=== PATIENT | male | born 1955 | race Caucasian/White ===

== ENCOUNTER → 2017-06-11 | Outpatient (CLI) | payer OTHER ==
[2017-06-11 11:35] LABS: APPEARANCE, URINE CLEAR (CLEAR); BACTERIA, URINE AUTO NEGATIVE (NEGATIVE); BILIRUBIN, URINE AUTO NEGATIVE (NEGATIVE); BLOOD, URINE BLOOD NEGATIVE (NEGATIVE); COLOR, URINE YELLOW (YELLOW); GLUCOSE, URINE (UA) AUTO NEGATIVE (NEGATIVE); KETONE, URINE AUTO NEGATIVE (NEGATIVE); LEUKOCYTE ESTERASE, URINE AUTO NEGATIVE (NEGATIVE); MUCUS, URINE SMALL (NEGATIVE); NITRITE, URINE AUTO NEGATIVE (NEGATIVE); PROTEIN, URINE AUTO NEGATIVE (NEGATIVE); RBC, URINE AUTO 0 /HPF (0-3); SPECIFIC GRAVITY URINE AUTO 1.019 (1.002-1.035); SQUAMOUS EPITHELIAL CELL UR AU 0 /HPF (0-6); UROBILINOGEN, URINE AUTO 0.2 mg/dL (0.0-2.0); WBC, URINE AUTO 0 /HPF (0-3)
[2017-06-11 11:36] LABS: HEMATOCRIT 41.6 % (42.0-52.0); HEMOGLOBIN 14.5 g/dl (13.5-17.5); MEAN CORPUSCULAR HEMOGLOBIN 31.7 pg (27.0-33.0); MEAN CORPUSCULAR HGB CONC 34.9 g/dl (32.0-36.5); PLATELET COUNT, AUTOMATED 264 10^3/uL (150-450); RED BLOOD COUNT 4.57 10^6/uL (4.30-6.10); RED CELL DISTRIBUTION WIDTH 11.8 % (11.5-14.5); WHITE BLOOD COUNT 7.1 10^3/uL (4.0-10.0)
[2017-06-11 11:43] LABS: INR 1.06; PROTHROMBIN TIME 13.9 SECONDS (12.4-14.5)
[2017-06-11 12:07] LABS: ALBUMIN 4.3 GM/DL (3.2-5.2); ALBUMIN/GLOBULIN RATIO 1.23 (1.00-1.93); ALKALINE PHOSPHATASE 68 U/L (45-117); ALT/SGPT 50 U/L (12-78); ANION GAP 6 MEQ/L (8-16); AST/SGOT 31 U/L (7-37); BILIRUBIN,TOTAL 0.5 MG/DL (0.2-1.0); BLOOD UREA NITROGEN 14 MG/DL (7-18); CALCIUM LEVEL 8.7 MG/DL (8.5-10.1); CARBON DIOXIDE LEVEL 27 MEQ/L (21-32); CHLORIDE LEVEL 105 MEQ/L (98-107); GLOMERULAR FILTRATION RATE > 60.0 (>56); GLUCOSE, FASTING 133 MG/DL (70-100); POTASSIUM SERUM 3.5 MEQ/L (3.5-5.1); SODIUM LEVEL 138 MEQ/L (136-145); TOTAL PROTEIN 7.8 GM/DL (6.4-8.2)
[2017-06-11 12:15] LABS: ERYTHROCYTE SEDIMENTATION RATE 3 mm/hr (0-20)
== END ==
LOC: M ADMPAT 10:21
DX: Z01.818 Encounter for other preprocedural examination (principal); M17.11 Unilateral primary osteoarthritis, right knee
CPT/HCPCS: 71046

== ENCOUNTER 2017-07-03 05:49 | Inpatient (IN) | payer OTHER ==
[2017-07-03] MEDS: LR 1,000 ML IV ×5 (06:00→21:30)
[2017-07-03] MEDS: ACETAMINOPHEN 500 MG TAB PO (06:25)
[2017-07-03] MEDS ORDERED: fentaNYL 100 MCG/2 ML INJECTION (J3010) As Ordered ×2 (06:47→07:39)
[2017-07-03] MEDS ORDERED: MIDAZOLAM INJ 2 MG/2 ML VIAL (J2250) As Ordered ×2 (06:47→07:39)
[2017-07-03] MEDS: MIDAZOLAM INJ 2 MG/2 ML VIAL (J2250) IV ×2 (07:18→07:19)
[2017-07-03] MEDS: fentaNYL 100 MCG/2 ML INJECTION (J3010) IV (07:18)
[2017-07-03] MEDS ORDERED: LIDOCAINE 2% INJ 100 MG/5 ML SDV (FOR ANES.) As Ordered (07:39)
[2017-07-03] MEDS ORDERED: PROPOFOL 200 MG/20 ML VIAL As Ordered (07:39)
[2017-07-03] MEDS ORDERED: BUPIVACAINE/DEXTROSE 0.75% 2 ML AMP As Ordered (07:45)
[2017-07-03] MEDS ORDERED: ONDANSETRON 4MG/2ML VIAL (J2405) As Ordered (07:50)
[2017-07-03] MEDS ORDERED: METOCLOPRAMIDE INJ 10MG/2ML VIAL (J2765) As Ordered (07:50)
[2017-07-03] MEDS ORDERED: ePHEDrine SULFATE 25 MG/5 ML(5MG/ML) SYRINGE As Ordered (07:51)
[2017-07-03] MEDS ORDERED: PHENYLephrine HCL 500 MCG/5 ML (100MCG/ML) SYRINGE (J2370) As Ordered (08:00)
[2017-07-03] MEDS ORDERED: SEVOFLURANE INHAL SOLN 250 ML BTL As Ordered (08:06)
[2017-07-03] MEDS: ceFAZolin 1GM INJ (J0690 PER 500MG) As Ordered (08:14)
[2017-07-03] MEDS: TRANEXAMIC ACID 100 MG/ML 10ML VIAL As Ordered ×2 (08:15)
[2017-07-03] MEDS: EPINEPHrine INJ 1 MG/ML 1ML AMP As Ordered (08:17)
[2017-07-03] MEDS: BUPIVACAINE LIPOSOME/PF 1.3% 20 ML VIAL (13.3MG/ML)(EXPAREL) As Ordered (08:54)
[2017-07-03] MEDS: BUPIVACAINE HCL 0.25% 10 ML VIAL As Ordered (08:54)
[2017-07-03] MEDS ORDERED: MORPHINE 1MG/ML IN 0.9% NACL 100ML IV BAG As Ordered (09:21)
[2017-07-03] MEDS: MORPHINE 1MG/ML IN 0.9% NACL 100ML IV BAG IV (09:40)
[2017-07-03] MEDS ORDERED: KETOROLAC 30 MG/ML VIAL (J1885) IV (09:45)
[2017-07-03] MEDS ORDERED: ONDANSETRON 4MG/2ML VIAL (J2405) IV ×2 (09:45→10:00)
[2017-07-03] MEDS ORDERED: fentaNYL 100 MCG/2 ML INJECTION (J3010) IV (09:45)
[2017-07-03] MEDS ORDERED: PERCOCET 5MG/325MG TAB PO (09:45)
[2017-07-03] MEDS ORDERED: diphenhydrAMINE INJ 50MG/ML VIAL (J1200) IV (10:00)
[2017-07-03] MEDS ORDERED: EPIDURAL/PCA KEYS XX (10:00)
[2017-07-03] MEDS ORDERED: NALBUPHINE HCL 10 MG/ML AMP (J2300) IV (10:00)
[2017-07-03] MEDS ORDERED: FLEET ENEMA PR (10:00)
[2017-07-03] MEDS ORDERED: ACETAMINOPHEN TAB 650MG DOSE (2X325MG) PO (10:00)
[2017-07-03] MEDS ORDERED: NALOXONE INJ 0.4 MG/1 ML VIAL (J2310) IV (10:00)
[2017-07-03] MEDS ORDERED: LIDOCAINE 1% MDV 20ML VIAL (10:32)
[2017-07-03] MEDS ORDERED: ROPIvacaine 0.5% 30 ML INJECTION (J2795 PER 1MG) (10:32)
[2017-07-03] MEDS ORDERED: EPINEPHrine INJ 1 MG/ML 1ML AMP (10:32)
[2017-07-03] MEDS ORDERED: NORCO, ANEXSIA 5/325MG TABLET (HYDROcodone/ACETAMINOPHEN) PO (16:15)
[2017-07-03] MEDS ORDERED: ONDANSETRON 4 MG TAB (S0181) PO (16:15)
[2017-07-03] MEDS: NORCO, ANEXSIA 5/325MG TABLET (HYDROcodone/ACETAMINOPHEN) PO ×2 (16:20→20:29)
[2017-07-04] MEDS: NORCO, ANEXSIA 5/325MG TABLET (HYDROcodone/ACETAMINOPHEN) PO ×2 (01:36→07:36)
[2017-07-04 06:03] LABS: HEMATOCRIT 39.8 % (42.0-52.0); HEMOGLOBIN 13.4 g/dl (13.5-17.5); MEAN CORPUSCULAR HEMOGLOBIN 31.8 pg (27.0-33.0); MEAN CORPUSCULAR HGB CONC 33.7 g/dl (32.0-36.5); MEAN CORPUSCULAR VOLUME 94.3 fl (80.0-96.0); PLATELET COUNT, AUTOMATED 202 10^3/uL (150-450); RED BLOOD COUNT 4.22 10^6/uL (4.30-6.10); RED CELL DISTRIBUTION WIDTH 12.1 % (11.5-14.5); WHITE BLOOD COUNT 8.3 10^3/uL (4.0-10.0)
[2017-07-04 06:14] LABS: INR 1.06; PROTHROMBIN TIME 13.9 SECONDS (12.4-14.5)
[2017-07-04] MEDS ORDERED: PERCOCET 5MG/325MG TAB PO ×2 (06:30)
[2017-07-04] MEDS ORDERED: ONDANSETRON 4 MG TAB (S0181) PO (06:30)
[2017-07-04 06:37] LABS: ANION GAP 7 MEQ/L (8-16); BLOOD UREA NITROGEN 12 MG/DL (7-18); CALCIUM LEVEL 8.3 MG/DL (8.5-10.1); CARBON DIOXIDE LEVEL 27 MEQ/L (21-32); CHLORIDE LEVEL 105 MEQ/L (98-107); CREATININE FOR GFR 0.97 MG/DL (0.70-1.30); GLOMERULAR FILTRATION RATE > 60.0 (>56); GLUCOSE, FASTING 127 MG/DL (70-100); POTASSIUM SERUM 3.7 MEQ/L (3.5-5.1); SODIUM LEVEL 139 MEQ/L (136-145)
[2017-07-04] MEDS ORDERED: NORCO, ANEXSIA 5/325MG TABLET (HYDROcodone/ACETAMINOPHEN) PO ×2 (07:00)
[2017-07-04] MEDS ORDERED: fentaNYL 100 MCG/2 ML INJECTION (J3010) As Ordered (07:01)
[2017-07-04] MEDS ORDERED: MIDAZOLAM INJ 2 MG/2 ML VIAL (J2250) As Ordered (07:01)
[2017-07-04] MEDS ORDERED: LIDOCAINE 2% INJ 100 MG/5 ML SDV (FOR ANES.) As Ordered (07:03)
[2017-07-04] MEDS ORDERED: PROPOFOL 200 MG/20 ML VIAL As Ordered (07:03)
[2017-07-04] MEDS: SENOKOT S TAB PO (09:00)
[2017-07-04] MEDS: MIRALAX *UNIT DOSE* 17GM PACKET PO (09:00)
[2017-07-04] MEDS: MOM 30ML SUSPENSION UDC PO (09:00)
[2017-07-04] MEDS: RIVAROXABAN 10 MG TAB (XARELTO) PO (09:08)
[2017-07-04] MEDS: hydroCHLOROthiazide 12.5 MG CAPSULE PO (09:08)
[2017-07-04] MEDS: LOSARTAN 50 MG TAB PO (09:09)
[2017-07-05] MEDS ORDERED: RIVAROXABAN 10 MG TAB (XARELTO) PO (18:00)
== END 2017-07-04 11:00 | disposition home health service (06) | DRG 470 ==
LOC: M OR 05:49 → M MS5PR 10:15
PROC: 0SRC0J9 Replacement of Right Knee Joint with Synthetic Substitute, Cemented, Open Approach (ICD-10-PCS; principal; 2017-07-03 07:30)
DX: M17.11 Unilateral primary osteoarthritis, right knee (principal); I10 Essential (primary) hypertension; F17.220 Nicotine dependence, chewing tobacco, uncomplicated; Z96.652 Presence of left artificial knee joint